=== PATIENT | male | born 1995 | race Caucasian/White ===

== ENCOUNTER 2017-04-18 10:14 | Inpatient (IN) | payer OTHER, SELFPAY ==
[2017-04-18 10:36] LABS: #Eosinphils 0.1 thou/uL (0.0-0.7); #Lymphocytes 2.1 thou/uL (1.20-3.40); #Monocytes 0.8 thou/uL (0.11-0.59); #Neutrophils 7.3 thou/uL (1.40-6.50); %Basophils 0.5 % (0.0-1.0); %Eosinophils 0.9 % (0.0-10.0); %Lymphocytes 20.3 % (28.0-48.0); %Monocytes 7.3 % (0.0-4.0); Hematocrit 49.4 % (42.0-52.0); Mean Platelet Volume 7.3 fL (7.4-10.4); Red Blood Cell (RBC) Count 5.59 mill/uL (4.00-5.20); White Blood Cell (WBC) Count 10.3 thou/uL (4.8-10.8)
[2017-04-18 10:50] LABS: ALT (SGPT) 48 U/L (8-55); AST (SGOT) 50 U/L (10-45); Alkaline Phosphatase 80 U/L (Less than 750); Anion Gap 15 mmol/L (10-20); BUN (Urea Nitrogen) 9 mg/dL (8.4-21.0); Bilirubin, Total 0.7 mg/dL (0.2-1.2); Calc. Creatinine Clearance 0 mL/min (70-130); Calcium 9.5 mg/dL (7.8-10.44); Carbon Dioxide 22 mmol/L (22-29); Chloride 105 mmol/L (98-107); Estimated GFR-MDRD Greater than 90; Globulin 3.4 g/dL (2.4-3.5)
[2017-04-18] MEDS ORDERED: Dextrose 50% Abboject 50 ML SYRINGE SLOW IVP PRN (11:20)
[2017-04-18] MEDS ORDERED: Ondansetron ODT 4 MG TAB PO PRN (11:20)
[2017-04-18] MEDS ORDERED: Dextrose 5% in Water 1,000 ML IV PRN (11:20)
[2017-04-18] MEDS ORDERED: Ondansetron HCl/PF 4 MG/2 ML Vial IVP PRN (11:20)
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
[2017-04-18] MEDS ORDERED: Adacel (T-DAP) 0.5 ML VIAL ONE (13:09)
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
[2017-04-18 13:27] LABS: Bilirubin Negative (Negative); Blood, Urine Trace (Negative); Glucose, Urine (Dipstick) Negative (Negative); Ketone, Urine Negative (Negative); Nitrite Negative (Negative); Protein, Urine (Dipstick) Negative (Neg-Trace); Urobilinogen 0.2 mg/dL (0.2-1.0)
[2017-04-18 13:34] LABS: Bacteria/HPF None Seen HPF (None Seen); Hyaline Casts/LPF 0-3 HYALINE CAST LPF (0-3 Hyaline); RBC/HPF 0-3 HPF (0-3); Squamous Epithelial 0-3 HPF (0-3); WBC/HPF 0-3 HPF (0-3)
[2017-04-18] MEDS ORDERED: Lidocaine 1% PF 5 ML VIAL ONE (13:51)
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
[2017-04-18 15:36] VITALS: BMI 35.6
[2017-04-18] MEDS ORDERED: ISOVUE-370 76%-LOCM 1 ML ONE (17:01)
[2017-04-18] MEDS: Sodium Chloride 0.9% 1,000 ML IV SCH ×2 (17:29→20:03)
[2017-04-18] MEDS: Famotidine 20 MG TAB PO SCH (20:02)
[2017-04-18] MEDS: Acetaminophen 500 MG TAB PO PRN (20:02)
[2017-04-18] MEDS ORDERED: FLU VACC QS2017-18 36 mo. & older 0.5 ML SYRINGE IM ONE (21:00)
[2017-04-19] MEDS: Sodium Chloride 0.9% 1,000 ML IV SCH (02:10)
[2017-04-19 04:53] LABS: #Eosinphils 0.1 thou/uL (0.0-0.7); #Lymphocytes 1.3 thou/uL (1.20-3.40); #Monocytes 0.7 thou/uL (0.11-0.59); #Neutrophils 5.5 thou/uL (1.40-6.50); %Basophils 0.5 % (0.0-1.0); %Eosinophils 1.5 % (0.0-10.0); %Lymphocytes 16.3 % (28.0-48.0); %Monocytes 9.6 % (0.0-4.0); Hematocrit 42.9 % (42.0-52.0); Mean Platelet Volume 7.1 fL (7.4-10.4); Red Blood Cell (RBC) Count 4.78 mill/uL (4.00-5.20); White Blood Cell (WBC) Count 7.7 thou/uL (4.8-10.8)
[2017-04-19 05:32] LABS: Anion Gap 12 mmol/L (10-20); BUN (Urea Nitrogen) 7 mg/dL (8.4-21.0); Calc. Creatinine Clearance 282 mL/min (70-130); Calcium 8.9 mg/dL (7.8-10.44); Carbon Dioxide 23 mmol/L (22-29); Chloride 106 mmol/L (98-107); Estimated GFR-MDRD Greater than 90; Phosphorus 2.9 mg/dL (2.3-4.7)
[2017-04-19] MEDS: Acetaminophen 500 MG TAB PO PRN (05:51)
[2017-04-19] MEDS ORDERED: traMADol HCl 50 MG TAB PO PRN ×2 (07:44)
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
[2017-04-19] MEDS: Ibuprofen 800 MG TAB PO SCH ×3 (09:04→23:39)
[2017-04-19] MEDS: Famotidine 20 MG TAB PO SCH ×2 (09:04→20:39)
[2017-04-19] MEDS: Acetaminophen 500 MG TAB PO SCH ×3 (09:04→20:38)
[2017-04-19] MEDS: traMADol HCl 50 MG TAB PO SCH ×3 (09:31→20:50)
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
[2017-04-19] MEDS: Gabapentin 300 MG CAP PO SCH ×2 (14:24→20:39)
[2017-04-19] MEDS: Senokot S 8.6-50 MG TAB PO SCH (20:39)
[2017-04-20] MEDS: Acetaminophen 500 MG TAB PO SCH ×3 (02:30→14:54)
[2017-04-20] MEDS: traMADol HCl 50 MG TAB PO SCH ×3 (02:40→14:56)
[2017-04-20] MEDS: Ibuprofen 800 MG TAB PO SCH ×2 (08:26→16:25)
[2017-04-20] MEDS: Senokot S 8.6-50 MG TAB PO SCH (08:28)
[2017-04-20] MEDS ORDERED: Docusate 100 MG CAP PO SCH (09:00)
[2017-04-20] MEDS ORDERED: Polyethylene Glycol 3350 17 GM Packet PO SCH (09:00)
[2017-04-20] MEDS: Gabapentin 300 MG CAP PO SCH ×2 (09:52→14:56)
[2017-04-20] MEDS: Famotidine 20 MG TAB PO SCH (09:52)
[2017-04-20] MEDS ORDERED: Magnesium Citrate 300 ML BOT PO SCH (10:00)
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
--- NOTE | 2017-04-20 13:22 | PRG ---
DATE OF SERVICE: 04/20/2017 This is a 15 minutes subsequent visit note in which 15 minutes were spent in review of the imaging r ecord, evaluation and examination of the patient and formulation of a plan. Greater than 50% time w as spent in counseling on Jesus Sol. Mr. Sol has been transferred to the floor. He is doing well. It appears as if he is mobilizi ng. He is tolerating his TLSO clamshell brace. Neurologically, he is intact. At this point, I wou ld be fine with dismissal. We will arrange follow up in our clinic with upright AP and lateral thor acic and lumbar spine x-rays in 2 weeks. The duration of the brace will to be worn at all times or really whenever the head of bed is over 30 degrees for the next 12 weeks. DIAGNOSIS: L1 burst.
[2017-04-20 16:48] VITALS: BP 127/85; TEMP 98
== END 2017-04-20 18:50 | disposition home or self-care (01) | DRG 155 ==
LOC: ERS 10:14 → EDBD 10:14 → IMCU/EMU 15:09 → SURG A 04-19 14:46
PROVIDERS: ADMIT Surgery; ATTEND Surgery
DX: S02.2XXA Fracture of nasal bones, initial encounter for closed fracture (principal); S32.011A Stable burst fracture of first lumbar vertebra, initial encounter for closed fracture; F10.120 Alcohol abuse with intoxication, uncomplicated; V43.52XA Car driver injured in collision with other type car in traffic accident, initial encounter; Y92.410 Unspecified street and highway as the place of occurrence of the external cause
CPT/HCPCS: 12013; 36415; 70450; 70486; 71010; 71260; 72125; 72170; 74177; 80048; 80053; 80307; 81003; 81015; 83735; 84100; 85025; 86850; 86900; 86901; 90471; 90715; 94760; G0390; G8978-GP-CJ; G8979-GP-CJ; G8980-GP-CJ; G8987-GO-CK; G8988-GO-CK; G8989-GO-CK; J2001; L0639

== ENCOUNTER → 2017-07-07 | Outpatient (CLI) | payer OTHER | LOC: BICRAD 14:50 | PROVIDERS: ATTEND Surgery | DX: S22.008A Other fracture of unspecified thoracic vertebra, initial encounter for closed fracture (principal); S32.019A Unspecified fracture of first lumbar vertebra, initial encounter for closed fracture | CPT/HCPCS: 72100 ==

== ENCOUNTER 2021-01-09 20:08 | Emergency (ER) | payer SELFPAY ==
[2021-01-09] MEDS ORDERED: Ketorolac Tromethamine 30 MG/ML VIAL ONE (20:24)
== END 2021-01-09 21:30 | disposition home or self-care (01) ==
LOC: ERS 20:08
DX: S52.501A Unspecified fracture of the lower end of right radius, initial encounter for closed fracture (principal); F17.220 Nicotine dependence, chewing tobacco, uncomplicated; W19.XXXA Unspecified fall, initial encounter
CPT/HCPCS: 29125; 96372; 99283; J1885

== ENCOUNTER 2021-01-14 09:48 | Outpatient (CLI) | payer SELFPAY ==
[2021-01-15 12:49] LABS: SARS-CoV-2 PCR by NAA Not Detected (NotDetected)
== END 2021-01-14 09:49 | disposition home or self-care (01) ==
LOC: LABBT 09:48
PROVIDERS: ATTEND Orthopaedic Surgery
DX: Z01.812 Encounter for preprocedural laboratory examination (principal); S52.501A Unspecified fracture of the lower end of right radius, initial encounter for closed fracture; Z20.822 Contact with and (suspected) exposure to COVID-19
CPT/HCPCS: U0003; U0005

== ENCOUNTER 2021-01-16 12:53 | Day surgery (SDC) | payer OTHER ==
[2021-01-15 12:44] VITALS: BMI 37.3
[2021-01-16] MEDS ORDERED: Ketorolac Tromethamine 30 MG/ML VIAL ONE (13:41)
[2021-01-16] MEDS ORDERED: PROPOFOL 200 MG/20 ML VIAL ONE (13:41)
[2021-01-16] MEDS ORDERED: Ondansetron PF 4 MG/2 ML Vial ONE (13:41)
[2021-01-16] MEDS ORDERED: Lidocaine 1% PF 5 ML VIAL ONE (13:41)
[2021-01-16] MEDS ORDERED: Dexamethasone 20 MG/5 ML VIAL ONE (13:41)
[2021-01-16] MEDS ORDERED: HYDROmorphone 2 MG/ML VIAL ONE (13:54)
[2021-01-16] MEDS ORDERED: Bupivacaine 0.25% HCL 30 ML VIAL ONE (13:58)
[2021-01-16] MEDS ORDERED: EPINEPHrine 1 MG/ML AMP ONE (13:58)
[2021-01-16] MEDS ORDERED: Fentanyl 100 MCG/2 ML VIAL ONE ×3 (15:42→16:13)
== END 2021-01-16 17:45 | disposition home or self-care (01) ==
LOC: SDC 12:53
PROVIDERS: ATTEND Orthopaedic Surgery
PROC: 0PSH04Z Reposition Right Radius with Internal Fixation Device, Open Approach (ICD-10-PCS; principal; 2021-01-16)
DX: S52.501A Unspecified fracture of the lower end of right radius, initial encounter for closed fracture (principal); F17.200 Nicotine dependence, unspecified, uncomplicated; V80.010A Animal-rider injured by fall from or being thrown from horse in noncollision accident, initial encounter
CPT/HCPCS: 76000; C1713; J0171; J0690; J1100; J1170; J1885; J2405; J2704; J3010; S0020

== ENCOUNTER 2024-08-26 08:56 | Emergency (ER) | payer SELFPAY ==
[2024-08-26] MEDS ORDERED: Morphine 4 MG/ML VIAL ONE (09:12)
[2024-08-26] MEDS ORDERED: PROPOFOL 0 ML ONE (09:31)
[2024-08-26] MEDS ORDERED: PROPOFOL 40 ML ONE (09:41)
== END 2024-08-26 11:30 | disposition home or self-care (01) ==
LOC: ERS 08:56
DX: S43.014A Anterior dislocation of right humerus, initial encounter (principal); F17.220 Nicotine dependence, chewing tobacco, uncomplicated; X58.XXXA Exposure to other specified factors, initial encounter
CPT/HCPCS: 23650; 96361; 96374; J2270; J2704